=== PATIENT | female | born 1950 | race Caucasian/White ===

== ENCOUNTER 2020-04-14 05:41 | Day surgery (SDC) | payer MEDICARE ==
[~2020-04-14] VITALS: Ht 170.2 cm; Wt 67.0 kg
[~2020-04-14 05:41] MED LIST: ASPI-496 PO; CHOL100012 PO; CITA20TA6 PO; biotin PO
[2020-04-14] MEDS ORDERED: LACTATED RINGERS 1,000 ML IV SCH (06:09)
[2020-04-14 06:10] VITALS: BP 121/86
[2020-04-14] MEDS ORDERED: CHLORHEXIDINE 15 ML UDC MM ONE (06:30)
[2020-04-14] MEDS ORDERED: LIDOCAINE-MPF 1%, 2ML INFIL ONE (06:30)
[2020-04-14] MEDS ORDERED: BUPIVACAINE/PF-EPI 0.5% 1:200K ONE (06:53)
[2020-04-14] MEDS ORDERED: MIDAZOLAM 1 MG/ML, 2ML ONE (07:18)
[2020-04-14] MEDS ORDERED: FENTANYL PF 100 MCG/2ML ONE (07:18)
[2020-04-14] MEDS ORDERED: LIDOCAINE-MPF 2% ,5ML ONE ×3 (07:25→07:26)
[2020-04-14] MEDS ORDERED: PROPOFOL 10 MG/ML, 20ML ONE (07:48)
[2020-04-14] MEDS ORDERED: CEFAZOLIN 1,000 MG ONE (07:48)
[2020-04-14] MEDS ORDERED: LIDOCAINE 2%, 10ML IM ONE ×2 (07:48)
[2020-04-14] MEDS ORDERED: DEXAMETHASONE 4 MG/ML, 1ML ONE (07:48)
[2020-04-14] MEDS ORDERED: ONDANSETRON 2MG/ML, 2ML ONE (07:48)
[2020-04-14] MEDS ORDERED: BUPIVACAINE/PF-EPI 0.5% 1:200K IM ONE (07:48)
[2020-04-14] MEDS ORDERED: OXYcodone 5 MG/5 ML ORAL.SOL UDC PO PRN (08:00)
[2020-04-14] MEDS ORDERED: FENTANYL PF 100 MCG/2ML IV PRN (08:00)
[2020-04-14] MEDS ORDERED: PROMETHAZINE 25 MG/ML, 1ML IVPush PRN (08:00)
[2020-04-14] MEDS ORDERED: ACETAMINOPHEN 325 MG TABLET PO PRN (08:00)
== END 2020-04-14 10:32 | disposition home or self-care (01) ==
LOC: OUT 05:41
PROVIDERS: ATTEND Podiatrist Foot & Ankle Surgery
DX: M21.611 Bunion of right foot (principal); Z11.59 Encounter for screening for other viral diseases; M21.621 Bunionette of right foot; M19.071 Primary osteoarthritis, right ankle and foot; J45.909 Unspecified asthma, uncomplicated; F32.9 Major depressive disorder, single episode, unspecified; Z86.73 Personal history of transient ischemic attack (TIA), and cerebral infarction without residual deficits; Z88.5 Allergy status to narcotic agent; Z91.040 Latex allergy status
CPT/HCPCS: 28110; 28296; 93005; C1713; C1769; J0690; J1100; J2001; J2250; J2405; J2704; J3010; J7120; U0001